=== PATIENT | female | born 1960 | race Caucasian/White ===

== ENCOUNTER 2017-02-20 17:18 | Emergency (ER) | payer OTHER ==
[~2017-02-20] VITALS: Ht 157.4 cm; Wt 90.7 kg
[~2017-02-20 17:18] MED LIST: AMBIEN10 M1 PO; AMOXICILLIN500 M2 PO; CLINDAMYCIN HC300 MG PO; CYMBALTA60 M1 PO; LIDOCAINE VISC100 ML MM; LOVAZA1 GM PO; MOBIC15 MG PO; Motrin,Rufen800 MG PO; NEURONTIN600 MG PO; NORVAS; NORVASC10 MG PO; PERCOCET 325 MG1 TA2 PO; PRAVASTATIN SOD20 MG PO; PREDNICOT10 MG PO; PREDNICOT20 MG PO; PREDNISONE PO; PRILOSEC20 M2 PO; PRISTIQ ER25 MG PO; Peridex 473 ML473 ML PO; STRATTERA40 MG PO; ULTRAM50 MG PO; VICODIN ES 7501 TAB PO; WELLBUTRIN SR150 MG PO; ZIAC 10 MG-6.251 TAB PO; ZIAC 5 MG-6.25 MG PO
[2017-02-20 17:24] VITALS: BP 142/91
[2017-02-20] MEDS ORDERED: NAPROSYN500 MG PO (17:34)
== END 2017-02-20 19:03 | disposition home or self-care (01) ==
LOC: ED 17:18
DX: M25.571 Pain in right ankle and joints of right foot (principal); M25.561 Pain in right knee; R03.0 Elevated blood-pressure reading, without diagnosis of hypertension; I10 Essential (primary) hypertension; E78.5 Hyperlipidemia, unspecified; F17.200 Nicotine dependence, unspecified, uncomplicated; F41.9 Anxiety disorder, unspecified; Z88.6 Allergy status to analgesic agent; Z79.899 Other long term (current) drug therapy

== ENCOUNTER 2019-12-11 13:03 | Emergency (ER) | payer OTHER ==
[~2019-12-11] VITALS: Ht 154.9 cm; Wt 90.7 kg
[~2019-12-11 13:03] MED LIST changes: +NAPROSYN500 MG PO
[2019-12-11 13:13] VITALS: BP 130/83
[2019-12-11] MEDS ORDERED: PREDNISONE10 MG PO (14:13)
== END 2019-12-11 14:30 | disposition home or self-care (01) ==
LOC: ED 13:03
DX: L23.9 Allergic contact dermatitis, unspecified cause (principal); K21.9 Gastro-esophageal reflux disease without esophagitis; M19.90 Unspecified osteoarthritis, unspecified site; E78.00 Pure hypercholesterolemia, unspecified; M79.7 Fibromyalgia; I10 Essential (primary) hypertension; F17.200 Nicotine dependence, unspecified, uncomplicated; Z88.6 Allergy status to analgesic agent; Z79.899 Other long term (current) drug therapy

== ENCOUNTER → 2021-05-16 | Outpatient (CLI) | payer OTHER ==
[~2021-05-16] MED LIST changes: +PREDNISONE10 MG PO
== END | disposition home or self-care (01) ==
LOC: RAD 14:35
PROVIDERS: ATTEND Internal Medicine
DX: J31.0 Chronic rhinitis (principal)

== ENCOUNTER → 2021-09-04 | Outpatient (CLI) | payer OTHER | END | disposition home or self-care (01) | LOC: MAMMO 14:00 | PROVIDERS: ATTEND Obstetrics & Gynecology | DX: Z12.31 Encounter for screening mammogram for malignant neoplasm of breast (principal) ==

== ENCOUNTER → 2021-09-16 | Outpatient (CLI) | payer OTHER | END | disposition home or self-care (01) | LOC: MAMMO 12:58 | PROVIDERS: ATTEND Obstetrics & Gynecology | DX: N64.89 Other specified disorders of breast (principal); N63.20 Unspecified lump in the left breast, unspecified quadrant ==

== ENCOUNTER 2022-07-04 00:05 | Emergency (ER) | payer OTHER ==
[~2022-07-04] VITALS: Ht 154.9 cm; Wt 78.9 kg
[2022-07-04 00:20] VITALS: BP 156/94
[2022-07-04 02:52] LABS: HEMATOCRIT 42.6 % (37.0-47.0); MEAN CELL VOLUME 89.7 fl (81.0-99.0); MEAN CORPUSCULAR HGB 29.9 pg (27.0-31.0); MEAN CORPUSCULAR HGB CONC 33.3 g/dl (33.0-37.0); MEAN PLATELET VOLUME 9.9 fl (9.6-12.3); PLATELET COUNT AUTOMATED 213 10*3/uL (130-400); RED BLOOD COUNT 4.75 10*6/uL (4.10-5.10); RED CELL DISTRI WIDTH 13.9 % (0-14.5); WHITE BLOOD COUNT 4.1 10*3/uL (4.8-10.8)
[2022-07-04 02:53] LABS: MANUAL DIFF REFLEX YES
[2022-07-04 03:08] LABS: ALKALINE PHOSPHATASE 100 U/L (45-117); BUN 18 mg/dl (7-24); CHLORIDE 106 mmol/L (98-107); CREATININE 0.76 mg/dL (0.55-1.02); POTASSIUM 3.8 mmol/L (3.5-5.1); SGOT/AST 26 IU/L (3-35); SGPT/ALT 28 U/L (12-78); SODIUM 136 mmol/L (136-145); TOTAL PROTEIN 6.9 gm/dL (6.4-8.2)
[2022-07-04 03:16] LABS: BASOPHILS 1 % (0-1); TOTAL CELLS COUNTED 100 #CELLS
[2022-07-04 03:17] LABS: PLATELET SUFFICIENCY NORMAL (NORMAL)
== END 2022-07-04 07:15 | disposition home or self-care (01) ==
LOC: ED 00:05
PROVIDERS: Emergency Medicine
DX: M79.7 Fibromyalgia (principal); Z87.891 Personal history of nicotine dependence; Z98.890 Other specified postprocedural states; I10 Essential (primary) hypertension; E78.5 Hyperlipidemia, unspecified; Z79.899 Other long term (current) drug therapy; Z88.8 Allergy status to other drugs, medicaments and biological substances

== ENCOUNTER 2022-07-06 06:03 | Emergency (ER) | payer OTHER ==
[~2022-07-06] VITALS: Wt 77.1 kg
[2022-07-06 06:53] VITALS: BP 128/84
[2022-07-06] MEDS ORDERED: CYCLOBENZAPRINE10 MG PO (07:55)
[2022-07-06] MEDS ORDERED: MEDROL DOSEPAK4 MG PO (07:55)
== END 2022-07-06 08:10 | disposition home or self-care (01) ==
LOC: ED 06:03
DX: M54.50 Low back pain, unspecified (principal); M54.6 Pain in thoracic spine; M25.551 Pain in right hip; M25.552 Pain in left hip; M79.7 Fibromyalgia; F17.210 Nicotine dependence, cigarettes, uncomplicated; F41.9 Anxiety disorder, unspecified; I10 Essential (primary) hypertension; E78.5 Hyperlipidemia, unspecified; E66.9 Obesity, unspecified; Z68.30 Body mass index [BMI] 30.0-30.9, adult; Z98.890 Other specified postprocedural states; Z88.6 Allergy status to analgesic agent; Z79.899 Other long term (current) drug therapy

== ENCOUNTER → 2023-10-05 | Outpatient (CLI) | payer OTHER ==
[~2023-10-05] MED LIST changes: +CRESTOR5 M1 PO; +CYCLOBENZAPRINE10 MG PO; +MEDROL DOSEPAK4 MG PO; +TRAMADOL HCL50 MG PO
== END | disposition home or self-care (01) ==
LOC: MAMMO 16:12
PROVIDERS: ATTEND Obstetrics & Gynecology
DX: Z12.31 Encounter for screening mammogram for malignant neoplasm of breast (principal)

== ENCOUNTER → 2023-10-11 | Day surgery (SDC) | payer OTHER ==
[~2023-10-11] VITALS: Ht 154.9 cm; Wt 83.0 kg
[2023-10-11 08:38] VITALS: BP 138/80
[2023-10-11 09:35] VITALS: BP 102/66
[2023-10-11 09:50] VITALS: BP 108/67
[2023-10-11 10:05] VITALS: BP 108/62
[2023-10-11 11:06] VITALS: BP 102/66
== END | disposition home or self-care (01) ==
LOC: SDC 10-07 08:00
PROVIDERS: ATTEND Obstetrics & Gynecology
DX: D04.5 Carcinoma in situ of skin of trunk (principal); K21.9 Gastro-esophageal reflux disease without esophagitis; F32.A Depression, unspecified; I10 Essential (primary) hypertension; E78.00 Pure hypercholesterolemia, unspecified; F41.9 Anxiety disorder, unspecified; F17.210 Nicotine dependence, cigarettes, uncomplicated; M79.7 Fibromyalgia; M19.90 Unspecified osteoarthritis, unspecified site

== ENCOUNTER 2025-03-19 12:22 | Emergency (ER) | payer OTHER ==
[~2025-03-19] VITALS: Ht 154.9 cm; Wt 79.6 kg
[2025-03-19 12:33] VITALS: BP 154/76
[2025-03-19] MEDS ORDERED: methylPREDNISolone sod succ 125 MG VIAL IM ONE (12:40)
[2025-03-19] MEDS ORDERED: PREDNISONE50 MG PO (12:40)
[2025-03-19] MEDS ORDERED: Water, Sterile 10 ML VIAL ONE (13:02)
== END 2025-03-19 12:50 | disposition home or self-care (01) ==
LOC: ED 12:22
DX: L23.7 Allergic contact dermatitis due to plants, except food (principal); K21.9 Gastro-esophageal reflux disease without esophagitis; F32.A Depression, unspecified; M19.90 Unspecified osteoarthritis, unspecified site; E78.00 Pure hypercholesterolemia, unspecified; M79.7 Fibromyalgia; I10 Essential (primary) hypertension; Z72.0 Tobacco use; Z88.5 Allergy status to narcotic agent; Z98.890 Other specified postprocedural states